=== PATIENT | male | born 1965 | race Caucasian/White ===

== ENCOUNTER 2019-06-03 07:10 | Emergency (ER) | payer OTHER ==
[~2019-06-03] VITALS: Ht 180.3 cm; Wt 108.0 kg
[2019-06-03] MEDS ORDERED: CANDESARTAN CIL16 MG PO (07:34)
[2019-06-03] MEDS ORDERED: ULTRAM50 M1 PO (09:16)
[2019-06-03] MEDS ORDERED: FLEXERIL PO (09:18)
[2019-06-03 09:45] VITALS: BP 169/80
== END 2019-06-03 10:00 | disposition home or self-care (01) | DRG 563 ==
LOC: ED 07:10
DX: S43.402A Unspecified sprain of left shoulder joint, initial encounter (principal); S73.102A Unspecified sprain of left hip, initial encounter; V57.5XXA Driver of pick-up truck or van injured in collision with fixed or stationary object in traffic accident, initial encounter; Y92.488 Other paved roadways as the place of occurrence of the external cause